=== PATIENT | female | born 1960 | race Two or more races ===

== ENCOUNTER 2018-10-01 22:55 | Emergency (ER) | payer OTHER ==
[~2018-10-01] VITALS: Ht 157.5 cm; Wt 81.6 kg
[2018-10-01 23:48] LABS: Urine Bacteria FEW /hpf (None Seen); Urine Blood TRACE /uL (Negative); Urine Mucus FEW (None Seen); Urine Specific Gravity 1.002 (1.001-1.035); Urine WBC <1 /hpf (0 - 5)
[2018-10-02] MEDS ORDERED: cloNIDine HCL 0.1 MG TAB PO ONE
[2018-10-02] MEDS ORDERED: methylPREDNISolone SOD SUCC 125 MG/2 ML VL IV ONE
[2018-10-02 00:04] LABS: Basophils # (auto) 0.1 uL; Basophils % (auto) 0.6 % (0.0-2.0); Eosinophils # (auto) 0.1 uL; Eosinophils % (auto) 0.8 % (0.0-7.0); Hematocrit 44.4 % (36.0-46.0); Hemoglobin 15.3 g/dL (12.2-16.2); Lymphocytes # (auto) 1.8 uL; Lymphocytes % (auto) 19.7 % (10.0-50.0); Mean Corpuscular Hemoglobin 30.7 pg (28.0-32.0); Mean Corpuscular Hgb Conc. 34.5 g/dL (32.0-36.0); Monocytes # (auto) 0.7 uL; Monocytes % (auto) 7.6 % (0.0-12.0); Neutrophils # (auto) 6.5 uL; Neutrophils % (auto) 71.3 % (37.0-80.0); Nucleated Red Blood Cells % 0.2 %; Platelet Count (auto) 183 10^3/uL (140-450); Red Blood Cells 4.99 10^6/uL (4.0-5.20); Red Cell Distribution Width 12.7 % (11.8-14.3); White Blood Cell 9.1 10^3/uL (4.4-10.8)
[2018-10-02 00:23] LABS: Alanine Aminotransferase 26 U/L (13-56); Albumin 3.6 g/dL (3.4-5.0); Anion Gap 11 (5-15); Blood Urea Nitrogen 19 mg/dL (7-18); Calcium 8.9 mg/dL (8.5-10.1); Carbon Dioxide 25 mmol/L (21-32); Chloride 105 mmol/L (98-107); GFR African American 105 mL/min; GFR Non-African American 87 mL/min; Glucose 133 mg/dL (74-106); Potassium 3.9 mmol/L (3.5-5.1); Sodium 141 mmol/L (136-145)
[2018-10-02 00:30] LABS: Alkaline Phosphatase 96 U/L (45-117); Aspartate Aminotransferase 13 U/L (15-37); Bilirubin, Total 0.3 mg/dL (0.2-1.0); Total Protein 7.4 g/dL (6.4-8.2)
[2018-10-02] MEDS ORDERED: HYDROcodone-ACET 10/325MG TAB PO ONE (00:30)
[2018-10-02 02:35] VITALS: BP 114/52
== END 2018-10-02 03:05 | disposition home or self-care (01) ==
LOC: EDBD 22:55 → ER 22:55
DX: I10 Essential (primary) hypertension (principal); Z88.6 Allergy status to analgesic agent; Z88.8 Allergy status to other drugs, medicaments and biological substances
CPT/HCPCS: 36415; 71045; 80053; 81001; 83880; 84484; 85025; 93005; 94761; 96374; 99284; J2930